=== PATIENT | male | born 1985 | race Two or more races ===

== ENCOUNTER 2021-02-04 04:10 | Emergency (ER) | payer OTHER ==
[~2021-02-04] VITALS: Ht 188 cm; Wt 172.4 kg
[2021-02-04] MEDS ORDERED: LORAZEPAM 1 MG TABLET PO ONE (04:30)
[2021-02-04] MEDS ORDERED: NITROGLYCERIN PACKET 1 GM PACKET TD ONE (04:30)
[2021-02-04] MEDS ORDERED: NITROGLYCERIN PACKET 1 GM PACKET ONE (04:38)
[2021-02-04] MEDS ORDERED: LORAZEPAM 1 MG TABLET ONE (04:38)
[2021-02-04 04:44] LABS: BASOPHILS % (AUTO) 0.3 % (0.0-2.0); EOSINOPHILS % (AUTO) 2.5 % (0.0-6.0); HEMATOCRIT 41 % (39-51); HEMOGLOBIN 13.1 g/dL (13.5-17.5); LYMPHOCYTES # (AUTO) 0.9 /CMM (0.8-4.8); LYMPHOCYTES % (AUTO) 9.9 % (20.0-44.0); MEAN CORPUSCULAR HGB CONC 32 g/dl (31.0-36.0); MEAN CORPUSCULAR VOLUME 82 fL (80-96); MONOCYTES # (AUTO) 0.6 /CMM (0.1-1.30); MONOCYTES % (AUTO) 6.4 % (2.0-12.0); NEUTROPHILS % (AUTO) 80.9 % (43.0-81.0); PLATELET COUNT (AUTO) 206 /CMM (150-450); RED BLOOD CELL COUNT(AUTO) 4.99 MIL/uL (4.5-6.0); WHITE BLOOD COUNT (AUTO) 8.6 K/uL (4.3-11.0)
[2021-02-04 04:50] LABS: CALCIUM, SERUM 8.7 mg/dL (8.5-10.1); POTASSIUM 4.2 mmol/L (3.5-5.1)
[2021-02-04 04:57] LABS: BILIRUBIN,URINE SMALL (NEGATIVE); COLOR,URINE YELLOW (YELLOW); LEUKOCYTE ESTERASE ,URINE Negative (NEGATIVE); NITRITE, URINE Negative (NEGATIVE); PROTEIN,URINE Negative (NEGATIVE); UGLUCOSE Negative (NEGATIVE)
[2021-02-04 05:04] LABS: ALBUMIN 3.4 g/dL (3.4-5.0); BILIRUBIN,DIRECT 0.1 mg/dL (0.0-0.2); BILIRUBIN,TOTAL 0.5 mg/dL (0.2-1.0); TOTAL PROTEIN, SERUM 7.8 g/dL (6.4-8.2)
[2021-02-04 05:23] LABS: BACTERIA,URINE None seen /HPF (None Seen); MUCUS,URINE Few /LPF (None Seen); RBC,URINE 0-2 /HPF (0-2); SQUAMOUS EPITHELIAL CELL,UR Few /HPF (None Seen); WBC,URINE 0-2 /HPF (0-3)
[2021-02-04] MEDS ORDERED: LABETALOL HCL (100MG) 100 MG TABLET ONE (06:11)
[2021-02-04] MEDS ORDERED: LABETALOL HCL (100MG) 100 MG TABLET PO ONE (06:30)
--- NOTE | 2021-02-04 08:01 | NUR ---
[facility] FOR OTB, HAD ELEVATED HR OF 120'S IN [facility], HX OF CHF. PATIENT A/OX4, DENIES ANY COMPLAINTS. HR RANGES FROM 95-100. PATIENT IN STABLE CONDITION. PATIENT IS MEDICALLY CLEARED FOR DISCHARGE.
[2021-02-04 08:02] VITALS: BP 131/79
== END 2021-02-04 08:02 | disposition home or self-care (01) ==
LOC: ER 04:12
DX: R00.0 Tachycardia, unspecified (principal); F15.90 Other stimulant use, unspecified, uncomplicated; I11.0 Hypertensive heart disease with heart failure; I50.9 Heart failure, unspecified; E66.01 Morbid (severe) obesity due to excess calories; Z68.42 Body mass index [BMI] 45.0-49.9, adult
CPT/HCPCS: 36415; 71045-TC; 80048-TC; 80076-TC; 81001; 83880; 84484-TC; 85025-TC